=== PATIENT | female | born 1940 | race Caucasian/White ===

== ENCOUNTER 2023-12-18 17:46 | Emergency (ER) | payer MEDICARE, OTHER, SELFPAY ==
[2023-12-18 17:49] VITALS: BP 156/82
--- NOTE | 2023-12-18 20:08 | ED.MUSCINJ ---
HPI-Injury
General
Chief Complaint: Fall
Source: patient
Exam Limitations: none
Time Seen by Provider: 12/18/23 19:42
Nursing documentation reviewed up to this point in time: agreed with
Travel History
Have you had any contact with someone who has COVID-19?: No
Do you have any symptoms of coronavirus? Fever > 100 degrees, chills, cough, shortness of breath, sore throat, loss of taste or smell, muscle aches, or headache?: No
History of Present Illness-Injury
Is this injury a work related problem?: No
Is pt an associate of [facility]?: No
Initial Injury comments:
Patient states she was walking in the [address] in front of her [place], lost her footing and fell. Hit back of head on pavement. No LOC. Unable to get self up. Friend called police who assisted her up and into her home. Incident occurred this
afternoon. Tonight she noticed a lump to left occipital scalp. ALso complains of pain to her left hand at base of 1st metacarpal. Brought self to ED for eval.
Past History
Past History
ED Past Medical History: HTN, Hypercholesterolemia and Psychiatric (Depression.)
ED Past Surgical History: Other (Noncontributory)
Social History
Tobacco: Non-smoker
Alcohol: Occasional
Drug: None
Personal:
Living: alone
Employment: Retired
Family History
Family History: Other (Noncontributory)
Review of Systems
Review of Systems
Allergies reviewed?: Yes
All Other Systems: ROS reviewed and negative except as documented in HPI and ROS
Constitutional: Reports no symptoms
EENT: Reports no symptoms
Respiratory: Reports no symptoms
Cardiac: Reports no symptoms
ABD/GI: Reports no symptoms
Musculoskeletal: Reports joint pain (pain to left hand at base of 1st metacarapal)
Skin: Reports other (hematoma to left occipital scalp)
Neurological: Reports no symptoms
Psychiatric: Reports no symptoms
Musculoskeletal Injury Exam
Musculoskeletal Injury Exam
Left Hand:
Pain with Movement?: Moderate
Tender to palpation?: Moderate
Soft tissue swelling?: None
External deformity and angulation?: None
Contusion?: Moderate
Hematoma-local bleeding into tissue?: None
Strain- Sprain- Tear (Connective tissue injury)?: None
Crepitus with movement?: No
Joint instability?: No
Malalignment/deformity?: No
Range of motion: Limited
Distal skin color and temperature: normal-warm & good color
Capillary Refill: normal
Normal distal neurovascular exam?: Yes
Peripheral Pulses: radial (left): 3+
Phy Exam
General Physical Exam
General Presentation: well appearing and no apparent distress
General age: appears stated age
General Skin: warm and dry
General Habitus: normal
General Mental: alert
Neurological Exam
Neurological Exam: alert, oriented x3, CN II-XII intact, no motor deficits, no sensory deficits, speech normal and normal gait
Musculoskeletal Exam
Musculoskeletal Exam: full ROM and neuro vasc intact
Skin Exam
Skin Exam: normal color, warm/dry, no rash and other (Small hematoma to left posterior scalp)
Psychiatric Exam
Psychiatric Exam: normal mood/affect
Injury Course
Orders/Labs/Results
Orders:
Orders
12/18/23 20:07
CT Head W/o Iv Contrast Urgent
Comment:
Reason For Exam: fall
Hand, Left 3 View [CR Hand - Left Min 3 Views] Urgent
Comment:
Reason For Exam: fall, pain over 1st metacarpal base
12/18/23 21:50
Thumb Spica Left-Treatment ONCE
*Radiology
Radiology exam reviewed: preliminary read by ED provider (No fx)
*Pulse Oximetry
Patient hypoxic: no
*Critical Care Note
Total Time (30-74mins, 75-104mins- exclusive of procedures): Not Applicable
ED Attending Note
-
Portions of this chart may have been created with voice recognition software.� Occasional wrong word or��sound alike� substitutions may have occurred due to the inherent limitations of voice recognition software.
Discharge Plan
Departure
Patient Disposition: Home (Routine Discharge)
Date of Disposition: 12/18/23
Time of Disposition: 21:51
Patient with high blood pressure during this ER visit?: No
Condition: Good
Covid-19: Not Applicable
Discharge Problem:
Head injury, Contusion of hand
Instructions: Head Injury in Adults (DC), Contusion (DC), Preventing falls in adults, Using Cold for Pain
Prescriptions:
No Action
atorvastatin 40 MG tablet
40 mg PO QPM
clonazepam 1 MG tablet
1 mg PO Q6HPRN PRN (Reason: anxiety)
sulfamethoxazole-trimethoprim 1 TABLET tablet
1 tab PO BID
clindamycin HCl 300 MG capsule
300 mg PO Q6H Qty: 40 0RF
Referrals:
Daniel Aguila MD [Family Provider] - Follow up in 2-3 days
Interventions
Interventions:
*Risk Screen - Suicide Last Done: 12/18/23 21:02
*General Assessment Last Done: 12/18/23 17:49
*Neglect/Abuse Screening Last Done: 12/18/23 17:49
ED- Fall Risk Assessment Last Done: 12/18/23 21:02
*ED COVID-19 Vaccine History Last Done: 12/18/23 17:49
ED- Neurological Assessment Last Done: 12/18/23 21:02
[2023-12-18 21:01] VITALS: BMI 30.3
[2023-12-18 21:04] VITALS: BP 150/87
== END 2023-12-18 22:30 | disposition home or self-care (01) ==
LOC: EMR 17:46
PROVIDERS: EMERGENCY PHYSICIAN Emergency Medicine; FAMILY PHYSICIAN Internal Medicine
DX: S60.222A Contusion of left hand, initial encounter (principal); S09.90XA Unspecified injury of head, initial encounter; W19.XXXA Unspecified fall, initial encounter
CPT/HCPCS: 99284; 70450; 73130

== ENCOUNTER → 2024-03-17 13:58 | Outpatient (REF) | payer MEDICARE, OTHER, SELFPAY | LOC: HWRCS 13:58 | PROVIDERS: ATTENDING PHYSICIAN Internal Medicine Cardiovascular Disease; FAMILY PHYSICIAN Internal Medicine | DX: I35.1 Nonrheumatic aortic (valve) insufficiency (principal); I34.0 Nonrheumatic mitral (valve) insufficiency; I36.1 Nonrheumatic tricuspid (valve) insufficiency | CPT/HCPCS: 93306 ==

== ENCOUNTER → 2025-07-24 11:29 | Outpatient (REF) | payer MEDICARE, OTHER, SELFPAY | LOC: HWRCS 11:29 | PROVIDERS: ATTENDING PHYSICIAN Internal Medicine | DX: I20.89 Other forms of angina pectoris (principal) | CPT/HCPCS: 78452; 93017; A9500; J2785 ==